=== PATIENT | male | born 1950 | race African-American/Black ===

== ENCOUNTER 2021-08-20 09:39 | Outpatient (CLI) | payer MEDICARE, MEDICAID, SELFPAY ==
[2021-08-20 19:38] LABS: Hematocrit 36.7 % (42.0-52.0); Hemoglobin 11.8 g/dL (14.0-18.0); Mean Corpuscular HGB Conc 32.2 g/dl (32-36); Mean Corpuscular Hemoglobin 31.1 pg (26-34); Mean Corpuscular Volume 96.8 fl (80-100); Mean Platelet Volume 11.8 fl (7.4-10.4); Platelet Count Result 240 k/mm3 (150-375); Red Blood Count 3.79 M/mm3 (4.6-6.20); Red Cell Distribution Width 12.7 % (11.5-14.5)
[2021-08-20 19:43] LABS: Alanine Aminotransferase 18 U/L (4-50); Albumin Level 3.9 g/dL (3.5-5.1); Alkaline Phosphatase 114 U/L (38-126); Anion Gap 9 mmol/L (8-16); Aspartate Amino Transferase 21 U/L (17-59); Bilirubin,Total 0.6 mg/dL (0.2-1.3); Blood Urea Nitrogen 17 mg/dL (9-20); Calcium 9.2 mg/dL (8.4-10.2); Carbon Dioxide 26 mmol/L (22-30); Chloride 102 mmol/L (98-107); Cholesterol 147 mg/dL (0-200); Estimated Glomerular Filt Rate 60; Glucose 160 mg/dL (65-110); HDL Direct 42 mg/dL; Potassium 4.3 mmol/L (3.4-5.0); Sodium 137 mmol/L (137-145); Triglycerides 71 mg/dL (<150)
[2021-08-20 19:54] LABS: LDL Cholesterol Direct 73 mg/dL
[2021-08-20 20:00] LABS: Creatinine Urine 37.9 mg/dL
[2021-08-20 20:09] LABS: Microalbumin Urine Random < 6.0 mg/L (0-16.7)
[2021-08-20 20:10] LABS: MALB Creatinine Ratio < 15.8 mg/g (0-30)
[2021-08-20 20:11] LABS: Prostate Specific Antigen < 0.1 ng/mL (< OR = 4.0)
[2021-08-20 20:16] LABS: Hemoglobin A1C 5.5 % (<5.7)
== END 2021-08-20 09:40 | disposition home or self-care (01) ==
PROVIDERS: PCP Family Medicine; Visit Provider Family Medicine
DX: C61 Malignant neoplasm of prostate (principal); E11.8 Type 2 diabetes mellitus with unspecified complications; D64.9 Anemia, unspecified; I63.9 Cerebral infarction, unspecified; Z12.5 Encounter for screening for malignant neoplasm of prostate
CPT/HCPCS: 36415; 80053; 80061; 82043; 83036; 84153; 85027; G0103

== ENCOUNTER 2021-11-02 01:58 | Day surgery (SDC) | payer MEDICARE, MEDICAID, SELFPAY ==
[2021-10-26 15:09] VITALS: BMI 31.1
--- NOTE | 2021-11-01 16:34 | PM.HPGS ---
History of Present Illness History of Present Illness Consent: Risks, benefits, and alternatives have been discussed and questions answered. Patient agrees to proceed with procedure. Chief complaint: positive cologuard Narrative: Tyrell Lane is a 70 year old male referred for colon cancer screening. He recently performed a Cologuard test which was positive. This is his 1st colonoscopy Review of Systems Review of Systems: All systems reviewed & are unremarkable except as noted in HPI and below PMFSH Past Medical History Medical History Cerebrovascular accident (CVA) with involvement of right side of body Diabetes Hemiparesis Prostate CA Stroke Family History Family History Mother Family history of malignant neoplasm of breast in first degree relative Social History Social History Smoking status: Never smoker Second hand tobacco smoke exposure: No Alcohol intake: never Substance use: never Substance use type: does not use Living arrangements: with family Spiritual care concerns: No Meds Home Medications and Allergies Home Medications Medication Instructions Recorded Confirmed Type atorvastatin 40 mg tablet 40 mg PO DAILY 11/11/19 10/26/21 History warfarin 6 mg tablet 9 mg PO DAILY tablet 11/11/19 10/26/21 History carvedilol 25 mg tablet 25 mg PO Q12H 11/16/19 10/26/21 History furosemide 40 mg tablet 40 mg PO QAM 11/16/19 10/26/21 History flash glucose sensor #1 each 12/15/19 09/11/21 Rx metformin 500 mg tablet 500 mg PO BID #180 tablet 12/17/19 10/26/21 Rx blood sugar diagnostic #100 each 06/09/20 09/11/21 Rx lancets 33 gauge #100 ea 09/27/20 09/11/21 Rx glimepiride 1 mg tablet 1 mg PO QAM 02/01/21 09/11/21 History sacubitril 97 mg-valsartan 103 mg 1 tablet PO BID 02/01/21 09/11/21 History tablet warfarin 1 mg tablet 2 mg PO DAILY tablet 02/01/21 09/11/21 History benzonatate 200 mg capsule 200 mg PO BID PRN #20 cap 09/11/21 09/11/21 Rx dextromethorphan-guaifenesin 20 5 ml PO Q6H PRN #473 ml 09/11/21 09/11/21 Rx mg-400 mg/5 mL oral liquid albuterol sulfate 90 mcg/actuation See Rx Instructions .ROUTE 09/26/21 Rx aerosol inhaler .COMPLEX #17 g Allergies Allergy/AdvReac Type Severity Reaction Status Date / Time No Known Allergies Allergy Verified 11/02/21 12:24 Exam Resp: Auscultation: clear to auscultation bilaterally Cardio: Rate: regular rate Rhythm: regular rhythm GI: GI Palp: Yes Soft to palpation and No Tenderness to palpation present (GI) Assessment and Plan Assessment and plan (1) Colon cancer screening: Code(s): Z12.11 - Encounter for screening for malignant neoplasm of colon Status: Acute Assessment and Plan: Colonoscopy with possible biopsy or polypectomy or cautery or injection of substances.
[2021-11-02 12:24] LABS: Glucose Point of Care 148 mg/dl (65-105)
--- NOTE | 2021-11-02 12:32 | P.PNAN_ITS ---
Anes - Initial Pre Proc Eval Procedure: Operation Date: 11/02/21 13:30 Proposed Procedures p Colonoscopy - Kana Riley MD Date/Time: 11/02/21 12:32 Surgeon: Kana Riley MD Pre Op Diagnosis: positive cologuard Patient Data Age: 70 Gender: M Height: 1.88 m Weight: 110 kg Allergies Allergy/AdvReac Type Severity Reaction Status Date / Time No Known Allergies Allergy Verified 11/02/21 12:24 Home Medications Medication Instructions Recorded Confirmed Type atorvastatin 40 mg tablet 40 mg PO DAILY 11/11/19 10/26/21 History warfarin 6 mg tablet 9 mg PO DAILY tablet 11/11/19 10/26/21 History carvedilol 25 mg tablet 25 mg PO Q12H 11/16/19 10/26/21 History furosemide 40 mg tablet 40 mg PO QAM 11/16/19 10/26/21 History flash glucose sensor #1 each 12/15/19 09/11/21 Rx metformin 500 mg tablet 500 mg PO BID #180 tablet 12/17/19 10/26/21 Rx blood sugar diagnostic #100 each 06/09/20 09/11/21 Rx lancets 33 gauge #100 ea 09/27/20 09/11/21 Rx glimepiride 1 mg tablet 1 mg PO QAM 02/01/21 09/11/21 History sacubitril 97 mg-valsartan 103 mg 1 tablet PO BID 02/01/21 09/11/21 History tablet warfarin 1 mg tablet 2 mg PO DAILY tablet 02/01/21 09/11/21 History benzonatate 200 mg capsule 200 mg PO BID PRN #20 cap 09/11/21 09/11/21 Rx dextromethorphan-guaifenesin 20 5 ml PO Q6H PRN #473 ml 09/11/21 09/11/21 Rx mg-400 mg/5 mL oral liquid albuterol sulfate 90 mcg/actuation See Rx Instructions .ROUTE 09/26/21 Rx aerosol inhaler .COMPLEX #17 g Laboratory Tests 11/02/21 12:20 POC Capillary Glucose 148 mg/dl H mg/dl (65-105) Patient hx anesthesia problems: none Family hx anesthesia problems: none Results Review: All pre-operative results and documents have been reviewed as part of the pre-operative evaluation. [facility] Past Medical History Medical History Cerebrovascular accident (CVA) with involvement of right side of body Diabetes Hemiparesis Prostate CA Stroke Family History Family History Mother Family history of malignant neoplasm of breast in first degree relative Social History Social History Smoking status: Never smoker Second hand tobacco smoke exposure: No Alcohol intake: never Substance use: never Substance use type: does not use Living arrangements: with family Spiritual care concerns: No Anes - Eval Final PreProcedure Day of Procedure 11/02/21 12:32 Patient weight: obese Heart: regular rate and rhythm Lungs: clear to auscultation Airway: Mallampati scale class II Neurological: other (alert) Last oral intake: >/= 8 hours ASA classification: III Emergent: no Anesthetic plan: proceed Anesthesia type and monitoring: general GIVS and standard monitoring Results Review: All pre-operative results and documents have been reviewed as part of the pre-operative evaluation. Informed Consent: The patient's anesthetic plan and its attendant risks and benefits were discussed with the patient/family/POA. Questions were solicited and answers provided to the satisfaction of the patient/family/POA.
[2021-11-02 12:35] VITALS: BP 140/65; PULSE 61; RESP 20; TEMP 36.8; O2SAT 98
[2021-11-02] MEDS: LACTATED RINGERS 1,000 ML 150 ML IV CONT (12:46)
[2021-11-02 13:32] VITALS: BP 95/46; PULSE 66; RESP 22; O2SAT 100
[2021-11-02 13:42] VITALS: BP 107/56; PULSE 64; RESP 19; O2SAT 100
[2021-11-02 13:52] VITALS: BP 139/65; PULSE 74; RESP 19; O2SAT 100
== END 2021-11-02 14:32 | disposition home or self-care (01) ==
PROVIDERS: PCP Family Medicine; Visit Provider Internal Medicine Gastroenterology
PROC: 0DJD8ZZ Inspection of Lower Intestinal Tract, Via Natural or Artificial Opening Endoscopic (ICD-10-PCS; CPT 45378; principal; 2021-11-02 13:30)
DX: Z12.11 Encounter for screening for malignant neoplasm of colon (principal); R19.5 Other fecal abnormalities; K57.30 Diverticulosis of large intestine without perforation or abscess without bleeding; K63.5 Polyp of colon; Z79.01 Long term (current) use of anticoagulants; Z79.84 Long term (current) use of oral hypoglycemic drugs; Z79.51 Long term (current) use of inhaled steroids; E11.9 Type 2 diabetes mellitus without complications; Z85.46 Personal history of malignant neoplasm of prostate; I69.359 Hemiplegia and hemiparesis following cerebral infarction affecting unspecified side; E66.9 Obesity, unspecified; Z68.31 Body mass index [BMI] 31.0-31.9, adult
CPT/HCPCS: 45385; 82948; 88305; J2704; J7120

== ENCOUNTER 2022-02-18 14:41 | Outpatient (CLI) | payer MEDICARE, MEDICAID, SELFPAY ==
[2022-02-18 19:17] LABS: Alanine Aminotransferase 21 U/L (6-50); Albumin Level 3.6 g/dL (3.5-5.1); Alkaline Phosphatase 116 U/L (38-126); Anion Gap 6 mmol/L (8-16); Aspartate Amino Transferase 19 U/L (17-59); Bilirubin,Total 0.5 mg/dL (0.2-1.3); Blood Urea Nitrogen 17 mg/dL (9-20); Calcium 8.5 mg/dL (8.4-10.2); Carbon Dioxide 27 mmol/L (22-30); Chloride 105 mmol/L (98-107); Cholesterol 136 mg/dL (0-200); Estimated Glomerular Filt Rate 60; Glucose 203 mg/dL (65-110); HDL Direct 37 mg/dL; Potassium 4.2 mmol/L (3.4-5.0); Sodium 138 mmol/L (137-145); Triglycerides 120 mg/dL (<150)
[2022-02-18 19:26] LABS: Basophils Absolute Auto 0.1 K/mm3 (0.0-0.1); Basophils Percent Auto 1.3 % (0.2-1.2); Eosinophils Absolute Auto 0.2 K/mm3 (0-0.3); Hematocrit 35.3 % (42.0-52.0); Hemoglobin 11.6 g/dL (14.0-18.0); Immature Granulocyte Absolute 0.01 K/mm3 (0.00-0.031); Immature Granulocyte Percent A 0.3 % (0-0.5); Lymphocytes Absolute Auto 0.88 K/mm3 (0.9-3.2); Mean Corpuscular HGB Conc 32.9 g/dl (32-36); Mean Corpuscular Hemoglobin 31.5 pg (26-34); Mean Corpuscular Volume 95.9 fl (80-100); Mean Platelet Volume 11.4 fl (7.4-10.4); Monocytes Absolute Auto 0.6 K/mm3 (0.1-0.6); Monocytes Percent Auto 16.2 % (2.6-8.5); Neutrophils Percent Auto 53.2 % (45.5-73.1); Platelet Count Result 209 k/mm3 (150-375); Red Blood Count 3.68 M/mm3 (4.6-6.20); Red Cell Distribution Width 12.6 % (11.5-14.5); White Blood Count 3.8 K/mm3 (4.5-10.0)
[2022-02-18 19:28] LABS: LDL Cholesterol Direct 60 mg/dL
[2022-02-18 19:29] LABS: Microalbumin Urine Random 16.3 mg/L (0-16.7)
[2022-02-18 19:31] LABS: Creatinine Urine 137.2 mg/dL; MALB Creatinine Ratio 11.9 mg/g (0-30)
[2022-02-18 19:48] LABS: Atypical Lymphocytes Present; Ovalocytes 1+ (NORMAL); Platelet Estimate Adequate (Adequate)
[2022-02-18 20:04] LABS: Hemoglobin A1C 5.9 % (<5.7)
== END 2022-02-18 14:42 | disposition home or self-care (01) ==
PROVIDERS: PCP Family Medicine; Visit Provider Family Medicine
DX: D64.9 Anemia, unspecified (principal); E11.9 Type 2 diabetes mellitus without complications
CPT/HCPCS: 36415; 80053; 80061; 82043; 83036; 85025

== ENCOUNTER 2022-08-28 11:31 | Outpatient (CLI) | payer MEDICARE, MEDICAID, SELFPAY ==
[2022-08-28 18:51] LABS: Hematocrit 34.2 % (42.0-52.0); Mean Corpuscular HGB Conc 32.2 g/dl (32-36); Mean Corpuscular Hemoglobin 31.4 pg (26-34); Mean Corpuscular Volume 97.7 fl (80-100); Mean Platelet Volume 10.8 fl (7.4-10.4); Platelet Count Result 248 k/mm3 (150-375); Red Cell Distribution Width 12.9 % (11.5-14.5); White Blood Count 3.4 K/mm3 (4.5-10.0)
[2022-08-28 18:54] LABS: Hemoglobin A1C 5.8 % (<5.7)
[2022-08-28 19:02] LABS: Creatinine Urine 60.3 mg/dL
[2022-08-28 19:05] LABS: MALB Creatinine Ratio 13.4 mg/g (0-30); Microalbumin Urine Random 8.1 mg/L (0-16.7)
[2022-08-28 19:34] LABS: Alanine Aminotransferase 22 U/L (6-50); Albumin Level 3.7 g/dL (3.5-5.1); Alkaline Phosphatase 113 U/L (38-126); Anion Gap 4 mmol/L (8-16); Aspartate Amino Transferase 60 U/L (17-59); Bilirubin,Total 0.7 mg/dL (0.2-1.3); Blood Urea Nitrogen 17 mg/dL (9-20); Calcium 8.1 mg/dL (8.4-10.2); Carbon Dioxide 27 mmol/L (22-30); Chloride 108 mmol/L (98-107); Estimated Glomerular Filt Rate 54; Glucose 134 mg/dL (65-110); Sodium 139 mmol/L (137-145)
== END 2022-08-28 11:32 | disposition home or self-care (01) ==
PROVIDERS: PCP Family Medicine; Visit Provider Family Medicine
DX: D64.9 Anemia, unspecified (principal); E11.9 Type 2 diabetes mellitus without complications
CPT/HCPCS: 36415; 80053; 82043; 83036; 85027

== ENCOUNTER 2023-01-16 11:14 | Outpatient (CLI) | payer MEDICARE, MEDICAID, SELFPAY ==
[2023-01-16 20:19] LABS: Creatinine Urine 66.7 mg/dL
[2023-01-16 20:23] LABS: MALB Creatinine Ratio 59.8 mg/g (0-30); Microalbumin Urine Random 39.9 mg/L (0-16.7)
== END 2023-01-16 11:15 | disposition home or self-care (01) ==
LOC: ANHBWCLAB 11:16
PROVIDERS: PCP Family Medicine; Visit Provider Nurse Practitioner
DX: E11.8 Type 2 diabetes mellitus with unspecified complications (principal)
CPT/HCPCS: 82043

== ENCOUNTER 2023-02-12 14:59 | Outpatient (CLI) | payer MEDICARE, MEDICAID, SELFPAY ==
[2023-02-12 20:27] LABS: Hematocrit 22.9 % (42.0-52.0); Immature Platelet Fraction Pct 6.7 % (0.9-11.2); Mean Corpuscular HGB Conc 30.6 g/dl (32-36); Mean Corpuscular Hemoglobin 33.8 pg (26-34); Mean Corpuscular Volume 110.6 fl (80-100); Mean Platelet Volume 11.5 fl (7.4-10.4); Platelet Count Result 133 k/mm3 (150-375); Red Blood Count 2.07 M/mm3 (4.6-6.20); Red Cell Distribution Width 14.6 % (11.5-14.5)
[2023-02-12 21:00] LABS: White Blood Count 50.7 K/mm3 (4.5-10.0)
[2023-02-12 21:09] LABS: Lymphocytes Absolute Manual 37.51 K/mm3 (1.1-4.5); Neutrophils Percent Manual 26 % (46-73); Nucleated Red Blood Cells 1 %; Total Cells Counted 100
[2023-02-12 21:10] LABS: Platelet Estimate Decreased (Adequate)
[2023-02-12 21:11] LABS: Atypical Lymphocytes Present; Burr Cells 1+ (NORMAL); Microcytosis 1+ (NORMAL); Schistocytes Rare (NORMAL)
[2023-02-12 21:12] LABS: Ovalocytes 1+ (NORMAL); Smudge Cells PRESENT
[2023-02-12 21:23] LABS: Alanine Aminotransferase 63 U/L (6-50); Albumin Level 3.7 g/dL (3.5-5.1); Alkaline Phosphatase 69 U/L (38-126); Anion Gap 8 mmol/L (8-16); Aspartate Amino Transferase 81 U/L (17-59); Bilirubin,Total 0.7 mg/dL (0.2-1.3); Blood Urea Nitrogen 52 mg/dL (9-20); Calcium 8.5 mg/dL (8.4-10.2); Carbon Dioxide 24 mmol/L (22-30); Chloride 106 mmol/L (98-107); Cholesterol 80 mg/dL (0-200); Estimated Glomerular Filt Rate 11; Glucose 201 mg/dL (65-110); HDL Direct 21 mg/dL; Potassium 4.2 mmol/L (3.4-5.0); Sodium 138 mmol/L (137-145); Triglycerides 143 mg/dL (<150)
[2023-02-12 21:26] LABS: Alanine Aminotransferase 63 U/L (6-50); Albumin Level 3.7 g/dL (3.5-5.1); Alkaline Phosphatase 67 U/L (38-126); Aspartate Amino Transferase 67 U/L (17-59); Bilirubin,Total 0.7 mg/dL (0.2-1.3)
[2023-02-12 22:00] LABS: LDL Cholesterol Direct < 30 mg/dL
== END 2023-02-12 15:00 | disposition home or self-care (01) ==
PROVIDERS: PCP Family Medicine; Visit Provider Nurse Practitioner
DX: E78.00 Pure hypercholesterolemia, unspecified (principal); R53.1 Weakness; D64.9 Anemia, unspecified; E11.9 Type 2 diabetes mellitus without complications
CPT/HCPCS: 36415; 80053; 80061; 80076; 85025; 85055